=== PATIENT | female | born 1935 ===

== ENCOUNTER 2021-03-24 07:45 | Inpatient (IN) | payer OTHER ==
[~2021-03-24] VITALS: Ht 157.5 cm; Wt 66.7 kg
[2021-03-24] MEDS ORDERED: TENORMIN50 M1 PO (10:41)
[2021-03-24] MEDS ORDERED: PLAVIX75 MG PO (10:41)
[2021-03-24] MEDS ORDERED: FELODIPINE ER2.5 MG PO (10:42)
[2021-03-24] MEDS ORDERED: IRBESARTAN300 MG PO (10:43)
[2021-03-24] MEDS ORDERED: METFORMIN HCL500 M3 PO (10:43)
[2021-03-24] MEDS ORDERED: LASIX20 MG PO (10:43)
[2021-03-24] MEDS ORDERED: FLURBIPROFEN100 MG PO (10:43)
[2021-03-24] MEDS ORDERED: [UNRECOGNIZED DRUG - OTHER] (10:44)
[2021-03-24] MEDS ORDERED: ADULT LOW DOSE81 M1 PO (10:44)
[2021-03-29] MEDS ORDERED: RALOXIFENE HCL60 MG (08:19)
[2021-03-29] MEDS ORDERED: NIFEDIPINE ER30 MG (08:19)
[2021-03-29] MEDS ORDERED: CANDESARTAN CIL32 MG (08:19)
[2021-03-29] MEDS ORDERED: SPIRONOLACTONE100 MG (08:19)
[2021-04-01] MEDS ORDERED: ELIQUIS2.5 MG PO (07:21)
[2021-04-01] MEDS ORDERED: PERCOCET 5-3251 EACH PO (07:21)
[2021-04-01] MEDS ORDERED: DUI500 PO (07:21)
== END 2021-04-01 18:37 | DRG 470 ==
LOC: O/R 03-29 05:35 → SURH 03-29 05:35 → EDBD 03-29 07:45 → SURH 03-29 10:31
PROVIDERS: ADMIT Orthopaedic Surgery; ATTEND Orthopaedic Surgery
PROC: 0SRD0J9 Replacement of Left Knee Joint with Synthetic Substitute, Cemented, Open Approach (ICD-10-PCS; principal; 2021-03-29 07:00)
PROC: 30233N1 Transfusion of Nonautologous Red Blood Cells into Peripheral Vein, Percutaneous Approach (ICD-10-PCS; 2021-03-30)
DX: M17.12 Unilateral primary osteoarthritis, left knee (principal); D62 Acute posthemorrhagic anemia; I10 Essential (primary) hypertension; M81.0 Age-related osteoporosis without current pathological fracture